=== PATIENT | male | born 1955 | race African-American/Black ===

== ENCOUNTER 2020-08-10 12:28 | Inpatient (IN) | payer MEDICAID ==
[~2020-08-10] VITALS: Ht 167.6 cm; Wt 67.6 kg
[2020-08-10 12:33] VITALS: BP 154/92
--- NOTE | 2020-08-10 12:43 | NUR ---
ED Nurse Note: Patient from home and referred by Dr Ríos due to generalized body pain with headache decrease in appetite x 3 days. No reports of flu symptoms. Patient is AAO x4, ambulatory with non labored breathing.
--- NOTE | 2020-08-10 12:53 | Emergency Room Report ---
History of Present Illness General Chief Complaint: Pain Source: Patient Present Illness HPI Patient is a 64-year-old male presents for increased generalized body pain. Reports having had decreased appetite. Prior history of COPD as well as CHF. Patient was sent in by Dr. Ríos. Patient had prior history of seizure disorder and takes Depakote. No recent vomiting. Reports having pain diffusely through his extremities.Patient is a current smoker. He had been off of his medications for multiple days and had previously been on hospice. 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 COVID-19 Screening: Negative COVID-19 COVID-19 Testing Source: nasal Patient History Past Medical History: see triage record Reviewed Nursing Documentation: PMH: Agreed; PSxH: Agreed Nursing Documentation-PMH Past Medical History: No History, Except For Hx Cardiac Problems: Yes - stent Hx Hypertension: Yes Hx COPD: Yes Hx Gastrointestinal Problems: Yes - dysphasia Hx Cerebrovascular Accident: Yes Hx Seizures: Yes Review of Systems All Other Systems: negative except mentioned in HPI Physical Exam Vital Signs Date Time Temp Pulse Resp B/P (MAP) Pulse Ox O2 Delivery O2 Flow Rate FiO2 08/10/20 12:33 97.9 70 17 154/92 (112) 98 Room Air General Appearance: alert, GCS 15, Chronically Ill ENT: other - right side facial droop Neck: full range of motion Respiratory: lungs clear, no respiratory distress, wheezing Cardiovascular #1: normal inspection, no edema Gastrointestinal: normal inspection, soft Musculoskeletal: normal inspection, back normal, normal range of motion Neurologic: alert, motor strength/tone normal, adolescent specialist III-XII nml as tested, oriented x3 Psychiatric: normal inspection Skin: no rash Medical Decision Making Diagnostic Impression: Primary Impression: Generalized weakness Additional Impressions: COPD (chronic obstructive pulmonary disease) CVA (cerebral vascular accident) Seizure disorder ER Course Patient presents for generalized weakness. Differential diagnosis include was not limited to electrolyte abnormality, medication withdrawal, dehydration among others. Because of complexity of patient's case laboratory tests and imaging studies were ordered.Patient laboratory testing showed subtherapeutic Depakote level. His medications for several days. Patient given Toradol for pain. He was given breathing treatment. Coronavirus testing was negative.Patient's laboratory testing was unremarkable. Patient appears to be otherwise doing well. He had been previously in hospice due to multiple medical conditions ho wever has not been able to eat so for several days.Patient's laboratory testing showed some evidence of hypoglycemia.Patient was endorsed to oncoming physician likely will be admitted to the hospital due to inability to eat and generalized weakness. Labs Test 08/10/20 13:15 White Blood Count 5.4 K/UL (4.8-10.8) Red Blood Count 5.27 M/UL (4.70-6.10) Hemoglobin 14.3 G/DL (14.2-18.0) Hematocrit 45.0 % (42.0-52.0) Mean Corpuscular Volume 85 FL (80-99) Mean Corpuscular Hemoglobin 27.2 PG (27.0-31.0) Mean Corpuscular Hemoglobin Concent 31.9 G/DL (32.0-36.0) Red Cell Distribution Width 12.8 % (11.6-14.8) Platelet Count 231 K/UL (150-450) Mean Platelet Volume 10.3 FL (6.5-10.1) Neutrophils (%) (Auto) 37.4 % (45.0-75.0) Lymphocytes (%) (Auto) 48.7 % (20.0-45.0) Monocytes (%) (Auto) 10.0 % (1.0-10.0) Eosinophils (%) (Auto) 1.6 % (0.0-3.0) Basophils (%) (Auto) 2.3 % (0.0-2.0) Sodium Level 145 MMOL/L (136-145) Potassium Level 4.8 MMOL/L (3.5-5.1) Chloride Level 107 MMOL/L (98-107) Carbon Dioxide Level 28 MMOL/L (21-32) Anion Gap 10 mmol/L (5-15) Blood Urea Nitrogen 10 mg/dL (7-18) Creatinine 1.0 MG/DL (0.55-1.30) Estimat Glomerular Filtration Rate > 60 mL/min (>60) Glucose Level 59 MG/DL (74-106) Calcium Level 9.2 MG/DL (8.5-10.1) Total Bilirubin 0.4 MG/DL (0.2-1.0) Aspartate Amino Transf (AST/SGOT) 58 U/L (15-37) Alanine Aminotransferase (ALT/SGPT) 30 U/L (12-78) Alkaline Phosphatase 94 U/L (46-116) Troponin I 0.002 ng/mL (0.000-0.056) Pro-B-Type Natriuretic Peptide 54 pg/mL (0-125) Total Protein 7.2 G/DL (6.4-8.2) Albumin 3.5 G/DL (3.4-5.0) Globulin 3.7 g/dL Albumin/Globulin Ratio 0.9 (1.0-2.7) Thyroid Stimulating Hormone (TSH) 0.660 uiU/mL (0.358-3.740) Valproic Acid (Depakene) Level < 3 MCG/ML (50-100) Last Vital Signs Date Time Temp Pulse Resp B/P (MAP) Pulse Ox O2 Delivery O2 Flow Rate FiO2 08/10/20 12:33 97.9 70 17 154/92 98 Room Air Status: improved Disposition: ADMITTED INPATIENT Condition: Stable Referrals: [facility]ERR[facility] (PCP) Rancho Barrera MD Aug 10, 2020 12:53
[2020-08-10] MEDS ORDERED: Albuterol/Ipratropium 3ml neb HHN ONE (13:00)
[2020-08-10 13:26] LABS: BASOPHILS % (AUTO) 2.3 % (0.0-2.0); EOSINOPHILS % (AUTO) 1.6 % (0.0-3.0); HEMOGLOBIN 14.3 G/DL (14.2-18.0); LYMPHOCYTES % (AUTO) 48.7 % (20.0-45.0); MEAN CORPUSCULAR VOLUME 85 FL (80-99); NEUTROPHILS % (AUTO) 37.4 % (45.0-75.0); PLATELET COUNT 231 K/UL (150-450); RED BLOOD COUNT 5.27 M/UL (4.70-6.10); RED CELL DISTRIBUTION WIDTH 12.8 % (11.6-14.8); WHITE BLOOD COUNT 5.4 K/UL (4.8-10.8)
[2020-08-10 13:38] LABS: ANION GAP 10 mmol/L (5-15); BLOOD UREA NITROGEN 10 mg/dL (7-18); CALCIUM 9.2 MG/DL (8.5-10.1); CARBON DIOXIDE 28 MMOL/L (21-32); CHLORIDE 107 MMOL/L (98-107); POTASSIUM 4.8 MMOL/L (3.5-5.1); SODIUM 145 MMOL/L (136-145)
[2020-08-10 13:50] LABS: ALANINE AMINOTRANSFERASE 30 U/L (12-78); ALBUMIN 3.5 G/DL (3.4-5.0); ALBUMIN/GLOBULIN RATIO 0.9 (1.0-2.7); ALKALINE PHOSPHATASE 94 U/L (46-116); ASPARTATE AMINO TRANSFERASE 58 U/L (15-37); BILIRUBIN,TOTAL 0.4 MG/DL (0.2-1.0)
[2020-08-10] MEDS ORDERED: Depakote 500mg tab ORAL ONE (14:30)
[2020-08-10] MEDS ORDERED: D5 1/2NS w/KCl 20mEq 1,000 ML IV SCH (15:00)
[2020-08-10 15:36] VITALS: BP 175/77
[2020-08-10 16:59] LABS: APPEARANCE,URINE CLEAR; BILIRUBIN, URINE NEGATIVE (NEGATIVE); COLOR,URINE PALE YELLOW; GLUCOSE, URINE (UA) NEGATIVE (NEGATIVE); KETONES,URINE NEGATIVE (NEGATIVE); LEUKOCYTE ESTERASE ,URINE NEGATIVE (NEGATIVE); NITRITE,URINE NEGATIVE (NEGATIVE); PH,URINE 7 (4.5-8.0); PROTEIN,URINE NEGATIVE (NEGATIVE); UROBILINOGEN,URINE NORMAL MG/DL (0.0-1.0)
--- NOTE | 2020-08-10 19:06 | NUR ---
ED Nurse Note: Received report from MARK Jacobs. Pt has no new needs at this time. Assumed care of pt.
[2020-08-10 19:34] VITALS: BP 174/93
--- NOTE | 2020-08-10 20:01 | NUR ---
ED Nurse Note: Assisted pt to bathroom. Pt was able to ambulate to bathroom with x1 assistance. Pt assisted back to bed and put back on hotel desk clerk.
[2020-08-10 20:10] VITALS: BP 159/84
--- NOTE | 2020-08-10 20:42 | NUR ---
ED Nurse Note: Attempted to call report, floor not yet aware of this admission. Advised them to call me back when they get the information. Pt is currently resting with no new needs identified at this time.
[2020-08-10] MEDS ORDERED: ASPIRIN81 M3 PO (21:27)
[2020-08-10] MEDS ORDERED: FENTANYL1 EAC4 TDERMAL (21:27)
[2020-08-10] MEDS ORDERED: ULTRAM50 MG ORAL (21:27)
[2020-08-10] MEDS ORDERED: REMERON45 M1 ORAL (21:27)
[2020-08-10] MEDS ORDERED: ATORVASTATIN CA40 MG ORAL (21:27)
[2020-08-10] MEDS ORDERED: CLOPIDOGREL75 MG ORAL (21:27)
[2020-08-10] MEDS ORDERED: LISINOPRIL-HCT1 EACH ORAL (21:27)
[2020-08-10] MEDS ORDERED: THICK-IT227 GM PO (21:27)
[2020-08-10] MEDS ORDERED: SERTRALINE HCL50 MG ORAL (21:27)
[2020-08-10] MEDS ORDERED: AMLODIPINE BESY10 MG ORAL (21:27)
[2020-08-10] MEDS ORDERED: HYDROMORPHONE HC2 M1 ORAL (21:27)
[2020-08-10] MEDS ORDERED: ISOSORBIDE MONO60 M1 PO (21:27)
[2020-08-10] MEDS ORDERED: VALPROIC A250 MG/5 M PO (21:27)
--- NOTE | 2020-08-10 21:45 | NUR ---
TRANSFER TO FLOOR: Patient transferred to [facility] as ordered, per Dr. Barrera. Report given to MARK Ratliff. Belongings sent to floor with pt. Belongings inventory and med rec completed.
[2020-08-10 22:30] VITALS: BP 153/84
[2020-08-10] MEDS ORDERED: traMADol 50mg tab ORAL PRN (23:30)
[2020-08-10] MEDS ORDERED: HYDROmorphone 2mg tab ORAL PRN (23:30)
--- NOTE | 2020-08-10 23:39 | History & Physical ---
History and Physical History & Physicial Main Ríos MD Aug 10, 2020 23:39
[2020-08-11] VITALS: BP 152/87
[2020-08-11] MEDS: D5 1/2NS w/KCl 20mEq 1,000 ML IV SCH ×2 (00:05→15:01)
[2020-08-11] MEDS: Valproic Acid 250mg/5ml Liquid ORAL SCH ×2 (00:05→09:32)
--- NOTE | 2020-08-11 00:18 | NUR ---
NURSE NOTES: Received patient alert and orientedx4, on room air, no SOB noted, with complaint of severe generalized body pain. Per patient he eats regular food with thickener but not leafy vegetables. He also said that he lives in a house with other 7 patients but before he moved to this he was in board and care. Belongings checked. Spoke with Dr. Nunez and admission orders obtained and carried out. Instructed patient to use call light for assistance. Bed in lowest and lock engaged. Vital signs taken and recorded. Will monitor.
--- NOTE | 2020-08-11 01:15 | NUR ---
NURSE NOTES: Specimen for MRSA collected and sent to the lab. Patient refused rectal swab.
[2020-08-11 04:00] VITALS: BP 160/91
[2020-08-11 05:00] VITALS: BP 143/91
[2020-08-11] MEDS: Heparin 5000 units/ml inj SUBQ SCH ×2 (05:12→15:03)
[2020-08-11 07:17] LABS: BASOPHILS % (AUTO) 1.2 % (0.0-2.0); EOSINOPHILS % (AUTO) 2.1 % (0.0-3.0); HEMATOCRIT 40.7 % (42.0-52.0); HEMOGLOBIN 13.2 G/DL (14.2-18.0); LYMPHOCYTES % (AUTO) 52.5 % (20.0-45.0); MEAN CORPUSCULAR VOLUME 84 FL (80-99); MONOCYTES % (AUTO) 11.5 % (1.0-10.0); NEUTROPHILS % (AUTO) 32.7 % (45.0-75.0); PLATELET COUNT 209 K/UL (150-450); RED BLOOD COUNT 4.87 M/UL (4.70-6.10); RED CELL DISTRIBUTION WIDTH 12.6 % (11.6-14.8); WHITE BLOOD COUNT 4.7 K/UL (4.8-10.8)
--- NOTE | 2020-08-11 07:39 | NUR ---
CASE MANAGEMENT:REVIEW 64 YR OLD MALE PRESENTED TO OUR ER CC: GENERALIZED BODY PAIN, HEADACHE AND LOSS OF APPETITE SI: GENERALIZED WEAKNESS COPD. CVA. 97.8 70 17 154/92 98% ON RA GLUCOSE-59 IS: IVF+KCL @ 100/HR DEPAKOTE PO X1 DUONEB HHN X1 CT HEAD XRAY WRIST AND FOREARM : TO MED/SURG DCP: RETURN TO PRIOR LIVING ARRANGEMENTS UPON DISCHARGE
[2020-08-11 07:42] LABS: ALANINE AMINOTRANSFERASE 27 U/L (12-78); ALBUMIN 3.1 G/DL (3.4-5.0); ALBUMIN/GLOBULIN RATIO 0.9 (1.0-2.7); ALKALINE PHOSPHATASE 82 U/L (46-116); ANION GAP 11 mmol/L (5-15); ASPARTATE AMINO TRANSFERASE 40 U/L (15-37); BILIRUBIN,TOTAL 0.3 MG/DL (0.2-1.0); BLOOD UREA NITROGEN 15 mg/dL (7-18); CALCIUM 8.7 MG/DL (8.5-10.1); CARBON DIOXIDE 27 MMOL/L (21-32); CHLORIDE 104 MMOL/L (98-107); CREATININE 0.9 MG/DL (0.55-1.30); PHOSPHORUS 4.1 MG/DL (2.5-4.9); POTASSIUM 3.9 MMOL/L (3.5-5.1); SODIUM 141 MMOL/L (136-145)
--- NOTE | 2020-08-11 07:42 | NUR ---
NURSE HAND-OFF: Important Events on Shift: admission Patient Status: Diet: regular with thickener Pending Orders: Pending Results/Labs: Pending MD notification: Latest Vital Signs: Temperature 98.0 , Pulse 58 , B/P 143 /91 , Respiratory Rate 18 , O2 SAT 98 , Room Air, O2 Flow Rate . Vital Sign Comment: Latest Brumfield Fall Score: 35 Fall Risk: Medium Risk Safety Measures: Call light Within Reach, Bed Alarm , Side Rails Side Rails x2, Bed position . Fall Precautions: Yellow Socks Door Sign Patient Fall Education Report given to MARK Steward.
[2020-08-11 08:00] VITALS: BP 154/84
--- NOTE | 2020-08-11 08:10 | NUR ---
pt is sitting up in bed, awake and alert. pt eating breakfast, tolerates meal well. pt denies any pain and discomfort. respiration is even and unlabored on room air. no acute distress noted. call light within reach, will follow plan of care.
[2020-08-11] MEDS ORDERED: Aspirin Baby 81mg ORAL SCH (09:00)
[2020-08-11] MEDS ORDERED: Sertraline 50mg tab ORAL SCH (09:00)
[2020-08-11] MEDS ORDERED: Imdur 30mg tab ORAL SCH (09:00)
[2020-08-11] MEDS ORDERED: Lisinopril 10mg tab ORAL SCH (09:00)
--- NOTE | 2020-08-11 11:46 | Consultation ---
History of Present Illness General Date patient seen: Aug 11, 2020 Reason for Hospitalization: Pain Present Illness HPI 64-year-old male presents for increased generalized body pain. Reports having had decreased appetite. Prior history of COPD as well as CHF. Patient was sent in by Dr. Ríos. Patient had prior history of seizure disorder and takes Depakote. No recent vomiting. Reports having pain diffusely through his extremities.Patient is a current smoker. He had been off of his medications for multiple days and had previously been on hospice. abd tenderness on exam. surgery called to evaluate. Allergies: Coded Allergies: ACETAMINOPHEN (Verified Allergy, Unknown, 08/10/20) CODEINE (Verified Allergy, Unknown, 08/10/20) EGG (Verified Allergy, Unknown, 08/10/20) IBUPROFEN (Verified Allergy, Unknown, 08/10/20) COVID-19 Screening Contact w/high risk pt: No Experienced COVID-19 symptoms?: No Medication History Scheduled Amlodipine Besylate* (Amlodipine Besylate*), 10 MG ORAL DAILY, (Reported) Atorvastatin Calcium* (Atorvastatin Calcium*), 40 MG ORAL BEDTIME, (Reported) Clopidogrel* (Clopidogrel*), 75 MG ORAL DAILY, (Reported) Fentanyl 12MCG Patch* (Fentanyl 12MCG Patch*), 1 PATCH TDERMAL EVERY 72 HOURS, (Reported) Lisinopril/Hydrochlorothiazide 10-12.5 Mg Tab (Lisinopril-Hctz 10-12.5 Mg Tab), 1 TAB ORAL DAILY, (Reported) Mirtazapine (Remeron), 45 MG ORAL BEDTIME, (Reported) Sertraline Hcl* (Zoloft*), 50 MG ORAL DAILY, (Reported) Tramadol Hcl (Ultram*), 50 MG ORAL Q6H, (Reported) Scheduled PRN Hydromorphone Hcl (Hydromorphone Hcl), 2 MG ORAL for For Pain, (Reported) Miscellaneous Medications Aspirin (Aspirin), 81 MG PO, (Reported) Isosorbide Mononitrate (Isosorbide Mononitrate Er), 60 MG PO, (Reported) Starch (Thick-It), 227 GM PO, (Reported) Valproate Sodium (Valproic Acid), 250 MG PO, (Reported) Patient History Limited by: medical condition History Provided By: Patient, Medical Record, PMD Healthcare decision maker Resuscitation status Advanced Directive on File Past Medical/Surgical History Past Medical/Surgical History: (1) COPD (chronic obstructive pulmonary disease) (2) Generalized weakness (3) Seizure disorder (4) CVA (cerebral vascular accident) (5) Failure to thrive Review of Systems Review of Symptoms General ROS: no weight loss or fever Psychological ROS: no depression or mood changes, no memory loss Ophthalmic ROS: no visual changes or eye irritation ENT ROS: no nasal congestion, hearing loss, dizziness Allergy and Immunology ROS: no allergic symptoms or urticaria Hematological and Lymphatic ROS: no swollen glands, unusual bleeding or bruising Endocrine ROS: no polyuria, polydipsia, weight changes, temperature intolerance Respiratory ROS: no cough, shortness of breath, or wheezing Cardiovascular ROS: no chest pain or dyspnea on exertion Gastrointestinal ROS: denies abdominal pain, bright red blood in stool. Musculoskeletal ROS: no myalgias or arthralgias Neurological ROS: no TIA or stroke symptoms Dermatological ROS: no new or changing skin lesions, rashes or pruritis Physical Exam Physical Exam General appearance: alert, cooperative, no distress, appears stated age Head: Normocephalic, without obvious abnormality, atraumatic Eyes: conjunctivae/corneas clear. PERRL, EOM's intact. Fundi benign Throat: Lips, mucosa, and tongue normal. Teeth and gums normal Neck: supple, symmetrical, trachea midline, no adenopathy, thyroid: not enlarged, symmetric, no tenderness/mass/nodules, no carotid bruit and no JVD Lungs: clear to auscultation bilaterally Heart: regular rate and rhythm, S1, S2 normal, no murmur, click, rub or gallop Abdomen: soft, non-tender. Bowel sounds normal. No masses, no organomegaly Extremities: extremities normal, atraumatic, no cyanosis or edema Pulses: 2+ and symmetric Skin: Skin color, texture, turgor normal. No rashes or lesions Neurologic: Grossly normal Last 24 Hour Vital Signs Date Time Temp Pulse Resp B/P (MAP) Pulse Ox O2 Delivery O2 Flow Rate FiO2 08/11/20 09:32 154/84 08/11/20 09:32 59 154/84 08/11/20 09:31 154/84 08/11/20 08:00 97.1 59 19 154/84 (107) 97 08/11/20 05:00 58 143/91 (108) 08/11/20 04:00 98.0 61 18 160/91 (114) 98 08/11/20 01:04 Room Air 08/11/20 00:00 98.3 65 18 152/87 (108) 98 08/10/20 22:30 98.3 69 18 153/84 (107) 98 08/10/20 21:47 97.9 74 16 159/84 100 Room Air 08/10/20 20:10 97.9 59 16 159/84 99 Room Air 08/10/20 19:34 97.9 61 16 174/93 100 Room Air 21 08/10/20 15:36 62 16 175/77 100 Room Air 08/10/20 14:00 60 18 100 Room Air 21 08/10/20 12:33 97.9 70 17 154/92 98 Room Air 08/10/20 12:33 97.9 70 17 154/92 (112) 98 Room Air Intake and Output 08/10/20 08/11/20 19:00 07:00 Intake Total 450 ml Output Total 600 ml Balance -150 ml IV Total 450 ml Output Urine Total 600 ml # Voids 2 Laboratory Tests Test 08/10/20 13:15 08/10/20 16:16 08/10/20 18:04 08/10/20 19:12 White Blood Count 5.4 K/UL (4.8-10.8) Red Blood Count 5.27 M/UL (4.70-6.10) Hemoglobin 14.3 G/DL (14.2-18.0) Hematocrit 45.0 % (42.0-52.0) Mean Corpuscular Volume 85 FL (80-99) Mean Corpuscular Hemoglobin 27.2 PG (27.0-31.0) Mean Corpuscular Hemoglobin Concent 31.9 G/DL (32.0-36.0) L Red Cell Distribution Width 12.8 % (11.6-14.8) Platelet Count 231 K/UL (150-450) Mean Platelet Volume 10.3 FL (6.5-10.1) H Neutrophils (%) (Auto) 37.4 % (45.0-75.0) L Lymphocytes (%) (Auto) 48.7 % (20.0-45.0) H Monocytes (%) (Auto) 10.0 % (1.0-10.0) Eosinophils (%) (Auto) 1.6 % (0.0-3.0) Basophils (%) (Auto) 2.3 % (0.0-2.0) H Sodium Level 145 MMOL/L (136-145) Potassium Level 4.8 MMOL/L (3.5-5.1) Chloride Level 107 MMOL/L (98-107) Carbon Dioxide Level 28 MMOL/L (21-32) Anion Gap 10 mmol/L (5-15) Blood Urea Nitrogen 10 mg/dL (7-18) Creatinine 1.0 MG/DL (0.55-1.30) Estimat Glomerular Filtration Rate > 60 mL/min (>60) Glucose Level 59 MG/DL (74-106) L Calcium Level 9.2 MG/DL (8.5-10.1) Total Bilirubin 0.4 MG/DL (0.2-1.0) Aspartate Amino Transf (AST/SGOT) 58 U/L (15-37) H Alanine Aminotransferase (ALT/SGPT) 30 U/L (12-78) Alkaline Phosphatase 94 U/L (46-116) Troponin I 0.002 ng/mL (0.000-0.056) Pro-B-Type Natriuretic Peptide 54 pg/mL (0-125) Total Protein 7.2 G/DL (6.4-8.2) Albumin 3.5 G/DL (3.4-5.0) Globulin 3.7 g/dL Albumin/Globulin Ratio 0.9 (1.0-2.7) L Thyroid Stimulating Hormone (TSH) 0.660 uiU/mL (0.358-3.740) Valproic Acid (Depakene) Level < 3 MCG/ML (50-100) L Urine Color Pale yellow Urine Appearance Clear Urine pH 7 (4.5-8.0) Urine Specific Hume 1.015 (1.005-1.035) Urine Protein Negative (NEGATIVE) Urine Glucose (UA) Negative (NEGATIVE) Urine Ketones Negative (NEGATIVE) Urine Blood Negative (NEGATIVE) Urine Nitrite Negative (NEGATIVE) Urine Bilirubin Negative (NEGATIVE) Urine Urobilinogen Normal MG/DL (0.0-1.0) Urine Leukocyte Esterase Negative (NEGATIVE) POC Whole Blood Glucose 80 MG/DL (74-106) 118 MG/DL (74-106) H Test 08/11/20 06:00 White Blood Count 4.7 K/UL (4.8-10.8) L Red Blood Count 4.87 M/UL (4.70-6.10) Hemoglobin 13.2 G/DL (14.2-18.0) L Hematocrit 40.7 % (42.0-52.0) L Mean Corpuscular Volume 84 FL (80-99) Mean Corpuscular Hemoglobin 27.0 PG (27.0-31.0) Mean Corpuscular Hemoglobin Concent 32.3 G/DL (32.0-36.0) Red Cell Distribution Width 12.6 % (11.6-14.8) Platelet Count 209 K/UL (150-450) Mean Platelet Volume 10.3 FL (6.5-10.1) H Neutrophils (%) (Auto) 32.7 % (45.0-75.0) L Lymphocytes (%) (Auto) 52.5 % (20.0-45.0) H Monocytes (%) (Auto) 11.5 % (1.0-10.0) H Eosinophils (%) (Auto) 2.1 % (0.0-3.0) Basophils (%) (Auto) 1.2 % (0.0-2.0) Sodium Level 141 MMOL/L (136-145) Potassium Level 3.9 MMOL/L (3.5-5.1) Chloride Level 104 MMOL/L (98-107) Carbon Dioxide Level 27 MMOL/L (21-32) Anion Gap 11 mmol/L (5-15) Blood Urea Nitrogen 15 mg/dL (7-18) Creatinine 0.9 MG/DL (0.55-1.30) Estimat Glomerular Filtration Rate > 60 mL/min (>60) Glucose Level 92 MG/DL (74-106) Calcium Level 8.7 MG/DL (8.5-10.1) Phosphorus Level 4.1 MG/DL (2.5-4.9) Magnesium Level 1.9 MG/DL (1.8-2.4) Total Bilirubin 0.3 MG/DL (0.2-1.0) Aspartate Amino Transf (AST/SGOT) 40 U/L (15-37) H Alanine Aminotransferase (ALT/SGPT) 27 U/L (12-78) Alkaline Phosphatase 82 U/L (46-116) Total Protein 6.4 G/DL (6.4-8.2) Albumin 3.1 G/DL (3.4-5.0) L Globulin 3.3 g/dL Albumin/Globulin Ratio 0.9 (1.0-2.7) L Thyroid Stimulating Hormone (TSH) 1.022 uiU/mL (0.358-3.740) Microbiology Date/Time Source Procedure Growth Status 08/10/20 13:00 Nasopharynx SARS-CoV-2 Antigen (Rapid)(YOUNG) - Final Complete Height (Feet): 5 Height (Inches): 6.00 Weight (Pounds): 149 Medications Current Medications Medications (Trade) Dose Ordered Sig/Negra Route PRN Reason Start Time Stop Time Status Last Admin Dose Admin Amlodipine Besylate (Norvasc) 10 mg DAILY ORAL 08/11/20 09:00 09/10/20 08:59 08/11/20 09:32 Aspirin (ASA) 81 mg DAILY ORAL 08/11/20 09:00 09/25/20 08:59 08/11/20 09:31 Atorvastatin Calcium (Lipitor) 40 mg BEDTIME ORAL 08/11/20 21:00 11/09/20 20:59 Clopidogrel Bisulfate (Plavix) 75 mg DAILY ORAL 08/11/20 09:00 09/10/20 08:59 08/11/20 10:48 Dextrose/ Electrolytes 1,000 ml @ 75 mls/hr [id number] IV 08/10/20 23:15 09/09/20 23:14 08/11/20 00:05 Fentanyl (Duragesic) 1 patch EVERY 72 HOURS TDERMAL 08/10/20 23:30 08/17/20 23:29 UNV Heparin Sodium (Porcine) (Heparin 5000 units/ml) 5,000 units EVERY 8 HOURS SUBQ 08/11/20 06:00 09/25/20 05:59 08/11/20 05:12 Hydromorphone HCl (Dilaudid) 2 mg EVERY 8 HOURS PRN ORAL Severe Pain (Pain Scale 7-10) 08/10/20 23:30 08/17/20 23:29 08/11/20 00:04 Isosorbide Mononitrate (Imdur) 30 mg DAILY ORAL 08/11/20 09:00 09/10/20 08:59 08/11/20 09:31 Lisinopril (ZestriL) 10 mg DAILY ORAL 08/11/20 09:00 09/10/20 08:59 08/11/20 09:32 Mirtazapine (Remeron) 45 mg BEDTIME ORAL 08/11/20 21:00 11/09/20 20:59 Sertraline HCl (Zoloft) 50 mg DAILY ORAL 08/11/20 09:00 09/10/20 08:59 08/11/20 09:31 Tramadol HCl (Ultram) 50 mg Q6H PRN ORAL For Pain 08/10/20 23:30 08/17/20 23:29 08/11/20 05:04 Valproic Acid (Depakene) 250 mg EVERY 12 HOURS ORAL 08/10/20 23:45 09/09/20 23:44 08/11/20 09:32 Assessment/Plan Problem List: (1) COPD (chronic obstructive pulmonary disease) ICD Codes: J44.9 - Chronic obstructive pulmonary disease, unspecified SNOMED: 84051120 (2) Generalized weakness ICD Codes: R53.1 - Weakness SNOMED: 66922229 (3) Seizure disorder ICD Codes: G40.909 - Epilepsy, unspecified, not intractable, without status epilepticus SNOMED: 545386092 (4) CVA (cerebral vascular accident) ICD Codes: I63.9 - Cerebral infarction, unspecified SNOMED: 565929410 (5) Failure to thrive SNOMED: 97279299 (6) Abdominal pain Assessment & Plan: 64-year-old male presenting with generalized weakness and pain states everywhere hurts states he was on hospice for wants to go back on hospice again potentially. States he wants his medications. No nausea fever chills. During examination was identified to have abdominal discomfort as he stated it hurts when someone touched him there. Surgery called to evaluate. On examination patient is not tender. Abdomen soft nontender nondistended he has some cramping discomfort and just says it hurts everywhere and wants his medications. Labs noted no further imaging required at this time. Okay to discharge from surgical standpoint. Diet tolerated passing flatus having bowel movement having good urine output. ICD Codes: R10.9 - Unspecified abdominal pain SNOMED: 80312379 Christian Matos Aug 11, 2020 11:46
[2020-08-11 12:00] VITALS: BP 138/75
--- NOTE | 2020-08-11 13:12 | Internal Med Progress Note ---
Subjective Physician Name Main Ríos Attending Physician Main Ríos MD Current Medications Medications (Trade) Dose Ordered Sig/Negra Route PRN Reason Start Time Stop Time Status Last Admin Dose Admin Amlodipine Besylate (Norvasc) 10 mg DAILY ORAL 08/11/20 09:00 09/10/20 08:59 08/11/20 09:32 Aspirin (ASA) 81 mg DAILY ORAL 08/11/20 09:00 09/25/20 08:59 08/11/20 09:31 Atorvastatin Calcium (Lipitor) 40 mg BEDTIME ORAL 08/11/20 21:00 11/09/20 20:59 Clopidogrel Bisulfate (Plavix) 75 mg DAILY ORAL 08/11/20 09:00 09/10/20 08:59 08/11/20 10:48 Dextrose/ Electrolytes 1,000 ml @ 75 mls/hr [id number] IV 08/10/20 23:15 09/09/20 23:14 08/11/20 00:05 Fentanyl (Duragesic) 1 patch EVERY 72 HOURS TDERMAL 08/10/20 23:30 08/17/20 23:29 UNV Heparin Sodium (Porcine) (Heparin 5000 units/ml) 5,000 units EVERY 8 HOURS SUBQ 08/11/20 06:00 09/25/20 05:59 08/11/20 05:12 Hydromorphone HCl (Dilaudid) 2 mg EVERY 8 HOURS PRN ORAL Severe Pain (Pain Scale 7-10) 08/10/20 23:30 08/17/20 23:29 08/11/20 00:04 Isosorbide Mononitrate (Imdur) 30 mg DAILY ORAL 08/11/20 09:00 09/10/20 08:59 08/11/20 09:31 Lisinopril (ZestriL) 10 mg DAILY ORAL 08/11/20 09:00 09/10/20 08:59 08/11/20 09:32 Mirtazapine (Remeron) 45 mg BEDTIME ORAL 08/11/20 21:00 11/09/20 20:59 Sertraline HCl (Zoloft) 50 mg DAILY ORAL 08/11/20 09:00 09/10/20 08:59 08/11/20 09:31 Tramadol HCl (Ultram) 50 mg Q6H PRN ORAL For Pain 08/10/20 23:30 08/17/20 23:29 08/11/20 05:04 Valproic Acid (Depakene) 250 mg EVERY 12 HOURS ORAL 08/10/20 23:45 09/09/20 23:44 08/11/20 09:32 Allergies: Coded Allergies: ACETAMINOPHEN (Verified Allergy, Unknown, 08/10/20) CODEINE (Verified Allergy, Unknown, 08/10/20) EGG (Verified Allergy, Unknown, 08/10/20) IBUPROFEN (Verified Allergy, Unknown, 08/10/20) Subjective awake, alert, responsive, denies any chest pain or shortness of breath. Complained about generalized joint pain including hands, back, shoulders. Objective Last Vital Signs Date Time Temp Pulse Resp B/P (MAP) Pulse Ox O2 Delivery O2 Flow Rate FiO2 08/11/20 09:32 154/84 08/11/20 09:32 59 08/11/20 08:00 97.1 19 97 08/11/20 01:04 Room Air 08/10/20 19:34 21 Laboratory Tests Test 08/10/20 13:15 08/10/20 16:16 08/10/20 18:04 08/10/20 19:12 White Blood Count 5.4 K/UL (4.8-10.8) Red Blood Count 5.27 M/UL (4.70-6.10) Hemoglobin 14.3 G/DL (14.2-18.0) Hematocrit 45.0 % (42.0-52.0) Mean Corpuscular Volume 85 FL (80-99) Mean Corpuscular Hemoglobin 27.2 PG (27.0-31.0) Mean Corpuscular Hemoglobin Concent 31.9 G/DL (32.0-36.0) L Red Cell Distribution Width 12.8 % (11.6-14.8) Platelet Count 231 K/UL (150-450) Mean Platelet Volume 10.3 FL (6.5-10.1) H Neutrophils (%) (Auto) 37.4 % (45.0-75.0) L Lymphocytes (%) (Auto) 48.7 % (20.0-45.0) H Monocytes (%) (Auto) 10.0 % (1.0-10.0) Eosinophils (%) (Auto) 1.6 % (0.0-3.0) Basophils (%) (Auto) 2.3 % (0.0-2.0) H Sodium Level 145 MMOL/L (136-145) Potassium Level 4.8 MMOL/L (3.5-5.1) Chloride Level 107 MMOL/L (98-107) Carbon Dioxide Level 28 MMOL/L (21-32) Anion Gap 10 mmol/L (5-15) Blood Urea Nitrogen 10 mg/dL (7-18) Creatinine 1.0 MG/DL (0.55-1.30) Estimat Glomerular Filtration Rate > 60 mL/min (>60) Glucose Level 59 MG/DL (74-106) L Calcium Level 9.2 MG/DL (8.5-10.1) Total Bilirubin 0.4 MG/DL (0.2-1.0) Aspartate Amino Transf (AST/SGOT) 58 U/L (15-37) H Alanine Aminotransferase (ALT/SGPT) 30 U/L (12-78) Alkaline Phosphatase 94 U/L (46-116) Troponin I 0.002 ng/mL (0.000-0.056) Pro-B-Type Natriuretic Peptide 54 pg/mL (0-125) Total Protein 7.2 G/DL (6.4-8.2) Albumin 3.5 G/DL (3.4-5.0) Globulin 3.7 g/dL Albumin/Globulin Ratio 0.9 (1.0-2.7) L Thyroid Stimulating Hormone (TSH) 0.660 uiU/mL (0.358-3.740) Valproic Acid (Depakene) Level < 3 MCG/ML (50-100) L Urine Color Pale yellow Urine Appearance Clear Urine pH 7 (4.5-8.0) Urine Specific [place] 1.015 (1.005-1.035) Urine Protein Negative (NEGATIVE) Urine Glucose (UA) Negative (NEGATIVE) Urine Ketones Negative (NEGATIVE) Urine Blood Negative (NEGATIVE) Urine Nitrite Negative (NEGATIVE) Urine Bilirubin Negative (NEGATIVE) Urine Urobilinogen Normal MG/DL (0.0-1.0) Urine Leukocyte Esterase Negative (NEGATIVE) POC Whole Blood Glucose 80 MG/DL (74-106) 118 MG/DL (74-106) H Test 08/11/20 06:00 White Blood Count 4.7 K/UL (4.8-10.8) L Red Blood Count 4.87 M/UL (4.70-6.10) Hemoglobin 13.2 G/DL (14.2-18.0) L Hematocrit 40.7 % (42.0-52.0) L Mean Corpuscular Volume 84 FL (80-99) Mean Corpuscular Hemoglobin 27.0 PG (27.0-31.0) Mean Corpuscular Hemoglobin Concent 32.3 G/DL (32.0-36.0) Red Cell Distribution Width 12.6 % (11.6-14.8) Platelet Count 209 K/UL (150-450) Mean Platelet Volume 10.3 FL (6.5-10.1) H Neutrophils (%) (Auto) 32.7 % (45.0-75.0) L Lymphocytes (%) (Auto) 52.5 % (20.0-45.0) H Monocytes (%) (Auto) 11.5 % (1.0-10.0) H Eosinophils (%) (Auto) 2.1 % (0.0-3.0) Basophils (%) (Auto) 1.2 % (0.0-2.0) Sodium Level 141 MMOL/L (136-145) Potassium Level 3.9 MMOL/L (3.5-5.1) Chloride Level 104 MMOL/L (98-107) Carbon Dioxide Level 27 MMOL/L (21-32) Anion Gap 11 mmol/L (5-15) Blood Urea Nitrogen 15 mg/dL (7-18) Creatinine 0.9 MG/DL (0.55-1.30) Estimat Glomerular Filtration Rate > 60 mL/min (>60) Glucose Level 92 MG/DL (74-106) Calcium Level 8.7 MG/DL (8.5-10.1) Phosphorus Level 4.1 MG/DL (2.5-4.9) Magnesium Level 1.9 MG/DL (1.8-2.4) Total Bilirubin 0.3 MG/DL (0.2-1.0) Aspartate Amino Transf (AST/SGOT) 40 U/L (15-37) H Alanine Aminotransferase (ALT/SGPT) 27 U/L (12-78) Alkaline Phosphatase 82 U/L (46-116) Total Protein 6.4 G/DL (6.4-8.2) Albumin 3.1 G/DL (3.4-5.0) L Globulin 3.3 g/dL Albumin/Globulin Ratio 0.9 (1.0-2.7) L Thyroid Stimulating Hormone (TSH) 1.022 uiU/mL (0.358-3.740) Microbiology Date/Time Source Procedure Growth Status 08/10/20 13:00 Nasopharynx SARS-CoV-2 Antigen (Rapid)([facility]) - Final Complete Intake and Output 08/10/20 08/11/20 19:00 07:00 Intake Total 450 ml Output Total 600 ml Balance -150 ml IV Total 450 ml Output Urine Total 600 ml # Voids 2 Objective General: No acute distress, awake and alert HEENT: NCAT, Left eye: sclera anicteric, PERRL, EOMI, right eye : Prostatic Eye. Neck: Supple, no significant jugular venous distention, Lungs: Good inspiratory effort, no accessory muscle use, clear to auscultation bilaterally, no Wheeze or Rales. Heart: Regular rate and rhythm, normal S1/S2, no murmurs Abdomen: soft, nontender, nondistended. Normoactive bowel sounds. / Rectal: Refused and deferred. Extremities: No Cyanosis , clubbing or edema. Neuro: A&O x 3, Able to move all extremities Skin: warm, no rashes or lesions Psych: Normal mood and affect Assessment/Plan Assessment/Plan 1. Failure to thrive 2. Generalized joint pain. 3. Dehydration. 4. Hypertension. 5. COPD. 6. Seizure disorder. Plan: Consider discharge home with hospice. Continue on the pain medication. Main Ríos MD Aug 11, 2020 13:12
--- NOTE | 2020-08-11 13:52 | NUR ---
RD ASSESSMENT & RECOMMENDATIONS SEE CARE ACTIVITY FOR COMPLETE ASSESSMENT DAILY ESTIMATED NEEDS: Needs based on pulmonary, cardiac/ 68kg 25-30 kcals/kg [id number] total kcals 1-1.5 g protein/kg 68-102 g total protein 25-30 mL/kg 0787-4944 total fluid mLs NUTRITION DIAGNOSIS: Swallowing difficulty R/T dysphagia, h/o CVA as evidenced by pt reports was on honey thickened liquids OPTICIAN APPRENTICE, BEHAVIORAL HEALTH SPECIALIST eval pending at this time. CURRENT DIET: REGULAR PO DIET RECOMMENDATIONS: LOW NA/ texture per BEHAVIORAL HEALTH SPECIALIST ADDITIONAL RECOMMENDATIONS: * Calibrated bedscale wt * BEHAVIORAL HEALTH SPECIALIST eval and rec for appropriate texture and liquid consistency * Ensure Enlive TID w/ meals at this time -> monitor meal intake, need to decrease Ensure frequency * MVI x 1 * Monitor closely for hypoglycemia: add HS snack
[2020-08-11] MEDS ORDERED: Varibar Thin Liquid powder 148gm MC PRN (15:30)
[2020-08-11] MEDS ORDERED: Varibar Nectar 240ml MC PRN (15:30)
[2020-08-11] MEDS ORDERED: Varibar Honey 250ml MC PRN (15:30)
[2020-08-11] MEDS ORDERED: Varibar Pudding 230ml MC PRN (15:30)
--- NOTE | 2020-08-11 15:59 | History and Physical Report ---
DATE OF ADMISSION: 08/10/2020 CHIEF COMPLAINT: Generalized weakness, pain. HISTORY OF PRESENT ILLNESS: The patient is a 64-year-old very unfortunate gentleman with past medical history significant for hypertension, history of COPD, dysphagia, prior history of stroke, seizure disorder, history of right prosthetic eye who presented to the hospital complaining about generalized weakness and multiple location pain, back pain, hand pain. Denies any shortness of breath or loss of consciousness. Denies any nausea, vomiting, diarrhea, complained about generalized weakness. He was previously on hospice and subsequently presented to the hospital for further evaluation. Shortly after initial evaluation in the emergency department, the patient was admitted to the hospital for failure to thrive, and generalized pain. PAST MEDICAL AND SURGICAL HISTORY: As above, history of COPD, congestive heart failure, hypertension, dysphagia, prior history of stroke, seizure disorder, right eye prosthetic. MEDICATIONS: At home, please refer to medication reconciliation. ALLERGIES: Aspirin, codeine, egg, ibuprofen. SOCIAL HISTORY: The patient currently smokes 7 to 8 cigarettes, occasional beer. Denies any alcohol or substance abuse. FAMILY HISTORY: Noncontributory. REVIEW OF SYSTEMS: Mostly as above. Denies any dysuria, frequency, hematuria. Denies any hemoptysis or hematochezia. Complained about generalized pain, hand pain, back pain, shoulder pain, knee pain. PHYSICAL EXAMINATION: VITAL SIGNS: On admission, temperature of 97.9, pulse of 70, respirations 17, blood pressure 154/92. GENERAL: The patient awake, responsive, no acute distress. HEENT: Head and neck examination, pupils are equal and reactive to light. Extraocular movements are intact. Right eye has prosthetic eye. NECK: Supple. No JVD. LUNGS: Good air entry. No wheezing or rales. HEART: S1 and S2. Regular rhythm. No murmur or gallops. ABDOMEN: Soft, nontender. Positive bowel sounds. EXTREMITIES: No cyanosis, clubbing, edema. NEUROLOGIC: Cranial nerves II through XII are grossly intact. Motor is 5/5 in all extremities. Gait is intact. RECTAL: Refused and deferred. GENITOURINARY: Refused and deferred. PSYCHIATRIC: Mood and affect is depressed. LABORATORY AND DIAGNOSTIC DATA: Laboratory on admission from the emergency department significant for WBC of 5.4, hemoglobin 14, hematocrit 45, platelets 231. Sodium 145, potassium 4.8, chloride 107, bicarb 28, BUN 10, creatinine 1.0, glucose 59, calcium is 9.2. AST of 58, ALT of 30. First troponin 0.002. BNP of 54. TSH 0.660. Albumin is 3.5. Urinalysis is negative. Valproic acid is less than 3. COVID-19 test is negative. ASSESSMENT: 1. Failure to thrive. 2. Generalized joint pain. 3. Generalized weakness. 4. COPD. 5. History of CVA. 6. Seizure disorder. 7. Dehydration. 8. Hypertension. PLAN: Admit the patient to medical floor. We will start the patient on IV hydration. Depakote level was noted subtherapeutic. We are consider to continue home medication. Code status is Full Code. DVT prophylaxis, heparin subcutaneous. If the patient's status improves, consider discharge home in the morning. Main Ríos M.D. DR: Rochelle JOB#: [id number] CC:
[2020-08-11 16:00] VITALS: BP 117/70
--- NOTE | 2020-08-11 16:31 | NUR ---
[employer]ORE GROUP MANAGER NOTES SPOKE WITH PT, HE WILL PROVIDE AN UBER FOR TRANSPORTATION HOME. UBER ETA 1800.
--- NOTE | 2020-08-11 17:24 | NUR ---
INSURANCE CLINICALS/REVIEW FAXED TO [facility] ([place]) [phone] CM: Sary vela [phone] Fax clinicals to: [phone]
--- NOTE | 2020-08-11 19:30 | NUR ---
NURSE NOTES: pt is discharged home at this time via uber van. pt is alert and awake. able to walk to the lobby accompanied by RN. pt denies any chest pain. respiration is even and unlabored. provided discharged teaching prior to discharge; pt verbalized understanding. no acute distress noted.
[2020-08-11] MEDS ORDERED: Atorvastatin 80mg tab ORAL SCH (21:00)
--- NOTE | 2020-08-15 13:18 | Discharge Summary ---
Discharge Summary Discharge Summary _ DATE OF ADMISSION: 08/10/2020 DATE OF DISCHARGE: 08/11/2020 DISCHARGED BY: Dr. Ríos REASON FOR ADMISSION: 64 years old male with past medical history significant for hypertension, COPD, dysphagia, CVA, seizure disorder, right prosthetic eye , presented to the hospital complaining of generalized weakness and pain He denied shortness of breath or loss of consciousness. He denied chest pain. He denied nausea ,vomiting or diarrhea. He was previously on the hospice , however presented to the hospital for further evaluation. Shortly after initial evaluation in emergency department he was admitted for failure to thrive and generalized pain. CONSULTANTS: surgery Dr. Matos [facility] COURSE: Patient admitted to medical surgical floor. Patient started on IV hydration. Volume status was closely monitored. Depakote level noted to be subtherapeutic. Seizure precaution maintained. Home medication resumed. DVT prophylaxis provided . Surgeon seen and evaluated patient. No acute surgical interventions were necessary . Abdominal exam was benign . Patient voiced desire to go home back with hospice servies. Patient was able to tolerate diet , passed flatus and had bowel movement and good urine output. Surgeon cleared patient for discharge. Patient subsequently was discharge home with the hospice services. FINAL DIAGNOSES: Failure to thrive Generalized joint pain Generalized weakness COPD History of CVA Seizure disorder Dehydration Hypertension DISCHARGE MEDICATIONS: See Medication Reconciliation list. DISCHARGE INSTRUCTIONS: Patient was discharged home with hospice services to follow I have been assigned to dictate discharge summary for this account. I was not involved in the patient's management. Digna Harp NP Aug 15, 2020 13:18
--- NOTE | 2020-08-15 17:48 | Cardiology Report ---
APPROVED REPORT EKG Measurement Heart [id number] <Conclusion> Normal sinus rhythm Normal ECG
== END 2020-08-11 19:30 | disposition home or self-care (01) | DRG 421 ==
LOC: EMR 12:50 → 4E 17:41 → EDBEDREQSVC 19:05 → EDBEDREQ 20:23
DX: R62.7 Adult failure to thrive (principal); E86.0 Dehydration; M25.59 Pain in other specified joint; J44.9 Chronic obstructive pulmonary disease, unspecified; G40.909 Epilepsy, unspecified, not intractable, without status epilepticus; I10 Essential (primary) hypertension; Z88.6 Allergy status to analgesic agent; Z90.01 Acquired absence of eye; F17.200 Nicotine dependence, unspecified, uncomplicated; R13.10 Dysphagia, unspecified; Z86.73 Personal history of transient ischemic attack (TIA), and cerebral infarction without residual deficits; R10.9 Unspecified abdominal pain
CPT/HCPCS: 36415; 80053; 80164; 81003; 82962; 83735; 83880; 84100; 84443; 84484; 85025; 87081; 93005; 94640; 99285; J7620